=== PATIENT | male | born 1990 | race Caucasian/White ===

== ENCOUNTER 2020-06-10 23:51 | Emergency (ER) | payer OTHER ==
[~2020-06-10] VITALS: Ht 180.3 cm; Wt 63.5 kg
--- NOTE | 2020-06-11 | NUR ---
PT CAME TO THE ER C/O N/V AND NOT BEING ABLE TO KEEP ANYTHING DOWN S/P DRINKING VODKA @ 1500 YESTERDAY. PT AAOX4, VSS, RESPIRATIONS EVEN AND UNLABORED ON RA W/ NAD NOTED. PT CONNECTED TO THE [employer] LEAD AND POX.
[2020-06-11] MEDS ORDERED: ONDANSETRON HCL/PF 4 MG/2 ML VIAL ONE (00:06)
[2020-06-11] MEDS ORDERED: ONDANSETRON HCL/PF 4 MG/2 ML VIAL IVP ONE (00:30)
[2020-06-11] MEDS ORDERED: IV NS 0.9% 1,000 ML BAG IV ONE (00:30)
[2020-06-11] MEDS ORDERED: ONDA4TAB5 PO (00:50)
--- NOTE | 2020-06-11 01:07 | NUR ---
Patient discharged to home in stable condition. Written and verbal after care instructions given. Patient verbalizes understanding of instruction. Pt ambulatory w/ steady gait
[2020-06-11 01:08] VITALS: BP 142/87
== END 2020-06-11 01:08 | disposition home or self-care (01) ==
LOC: ER 06-11 00:05
DX: F10.129 Alcohol abuse with intoxication, unspecified (principal); R11.2 Nausea with vomiting, unspecified; Y90.9 Presence of alcohol in blood, level not specified
CPT/HCPCS: 96361; 96374; 99283; J2405; J7030

== ENCOUNTER 2024-03-30 08:57 | Emergency (ER) | payer OTHER ==
[~2024-03-30] VITALS: Ht 180.3 cm; Wt 67.1 kg
[~2024-03-30 08:57] MED LIST: ONDA4TAB5 PO; PENI500T PO
[2024-03-30 09:02] VITALS: BP 133/77; TEMP 98.5; O2SAT 99
== END 2024-03-30 10:40 | disposition left against medical advice (07) ==
LOC: ER 09:11
DX: Z76.0 Encounter for issue of repeat prescription (principal); Z53.21 Procedure and treatment not carried out due to patient leaving prior to being seen by health care provider